=== PATIENT | male | born 1995 | race Caucasian/White ===

== ENCOUNTER 2018-05-19 07:19 | Emergency (ER) | payer SELFPAY ==
[~2018-05-19] VITALS: Wt 95.8 kg
[2018-05-19 07:22] VITALS: BP 168/100; PULSE 116; RESP 18
[2018-05-19] MEDS ORDERED: LIDOCAINE 1% (MPF) 5 ML VIAL INFIL ONE (08:00)
[2018-05-19] MEDS ORDERED: IBUP-1561 PO (08:43)
[2018-05-19] MEDS ORDERED: MUPI22OI2 TOP (08:43)
[2018-05-19] MEDS ORDERED: CEPH500C PO (08:43)
--- NOTE | 2018-05-19 08:50 | ERD ---
ER Documentation Chief Complaint Chief Complaint POSSIBLE SPIDER BITE TO LEFT FOREARM HPI 22-year-old male presents for left arm bump times 2 days. He states that he may have been bit by a spider. He states that the redness in the arm is been getting a little bit worse. There is some pus drainage from the arm. He denies any fevers or chills. Denies any chest pain or shortness of breath. ROS All systems reviewed and are negative except as per history of present illness. Medications Home Meds Active Scripts Mupirocin* (Bactroban*) 2% -22 Gram Oint...g., 1 APPLIC TOP BID for skin infection for 7 Days, EA Prov:HALIE SPANGLER DO 05/19/18 Ibuprofen* (Motrin*) 400 Mg Tab, 400 MG PO Q6H PRN for PAIN AND OR ELEVATED TEMP, #30 TAB Prov:HALIE SPANGLER DO 05/19/18 Cephalexin* (Cephalexin*) 500 Mg Capsule, 500 MG PO Q8 for skin infection for 7 Days, #21 CAP Prov:HALIE SPANGLER DO 05/19/18 PMhx/Soc Medical and Surgical Hx: pt denies Medical Hx, pt denies Surgical Hx Hx Alcohol Use: Yes Hx Substance Use: Yes (MARIJUANA) Hx Tobacco Use: No Smoking Status: Current some day smoker Physical Exam Vitals Vital Signs Date Temp Pulse Resp B/P (MAP) Pulse Ox O2 O2 Flow FiO2 Time Delivery Rate 05/19/18 97.8 116 18 168/100 99 07:22 (122) Physical Exam Const: No acute distress Resp: Clear to auscultation bilaterally Cardio: Regular rate and rhythm, no murmurs, bilateral radial pulses intact Skin: Left arm 2 cm lesion, raised, erythematous with mild warmth, mildly fluctuant Ext: No cyanosis, or edema Neur: Awake and alert, bilateral upper extremity sensation intact Psych: Normal Mood and Affect Results 24 hrs Current Medications Medications Dose Sig/Bj Start Time Status Last (Trade) Ordered Route PRN Stop Time Admin Dose Reason Admin Lidocaine 5 ml ONCE ONCE 05/19/18 DC (Xylocaine INFIL 08:00 1% (Mpf)) 05/19/18 08:01 Procedures/MDM Abscess Incision and Drainage with irrigation by me: Location: Right forearm Anesthesia: [Local 1% Lidocaine without epinephrine] Technique: [Irrigated. Disrupted loculations w/ instrumentation] Packing: [None] Complications: [Neurovascularly intact post procedure] 48 hour wound check. Scar minimization instructions given. Patient's skin symptoms have stabilized while they have been evaluated in the department and are appropriate for outpatient care and work up. Exam and w/u not consistent w/ sepsis, deep space infection, or foreign body. Medical Decision Making: Differential diagnosis includes but not limited to abscess, cellulitis, contact dermatitis. Patient appear well on examination. There is a 2 cm raised erythematous lesion noted consistent with an abscess. Incision and drainage was done in the ER, see procedure note above. Patient given prescription for Keflex, Motrin, Bactroban. Patient instructed regarding wound care. Patient advised to return to the ER in 48 hours for a wound check. Patient advised to follow up with PCP in 1-2 days. Patient advised to return to ED for new or worsening symptoms. Patient stable on discharge from the ED. Disclaimer: Inadvertent spelling and grammatical errors are likely due to EHR/dictation software use and do not reflect on the overall quality of patient care. Also, please note that the electronic time recorded on this note does not necessarily reflect the actual time of the patient encounter. Departure Diagnosis: Primary Impression: Abscess Condition: Fair Patient Instructions: Abscess, Incision And Drainage Additional Instructions: Call your primary care doctor TOMORROW for an appointment during the next 1-2 days.See the doctor sooner or return here if your condition worsens before your appointment time. Follow in in ED in 2 days. HALIE SPANGLER DO May 19, 2018 08:50
[2018-05-21] MEDS ORDERED: CEPH-443 PO (18:05)
[2018-05-21] MEDS ORDERED: SULF1TAB31 PO (18:05)
== END 2018-05-19 08:46 | disposition home or self-care (01) ==
LOC: FTE 07:19
DX: L02.414 Cutaneous abscess of left upper limb (principal); F17.210 Nicotine dependence, cigarettes, uncomplicated

== ENCOUNTER 2018-09-07 22:13 | Emergency (ER) | payer SELFPAY ==
[~2018-09-07] VITALS: Ht 175.3 cm; Wt 96.2 kg
[~2018-09-07 22:13] MED LIST: CEPH-443 PO; CEPH500C PO; IBUP-1561 PO; MUPI22OI2 TOP; SULF1TAB31 PO
[2018-09-07 22:19] VITALS: BP 163/78; PULSE 99; RESP 18; Ht 175.3 cm; Wt 96.2 kg
[2018-09-08] MEDS ORDERED: LIDOCAINE 1% (MDV) 10 ML INJ INJ STA (00:16)
[2018-09-08] MEDS ORDERED: LIDOCAINE 1% (MDV) 20 ML INJ INJ STA (00:21)
[2018-09-08] MEDS ORDERED: CLIN300C10 PO (01:13)
[2018-09-08] MEDS ORDERED: HYDR-4011 PO (01:13)
--- NOTE | 2018-09-08 01:16 | ERD ---
ER Documentation Chief Complaint Chief Complaint STATES LT FOREARM AND PELVIC ABSCESS X1.5 WEEKS HPI This is a 22-year-old male who presents with area of redness and swelling to his left mid inner forearm for about a week and a half. He also has 2 small abscesses to his pelvic region. This been some bleeding and drainage from them. No fever. ROS All systems reviewed and are negative except as per history of present illness. Medications Home Meds Active Scripts Hydrocodone/Acetaminophen ([facility] 5-325 Tablet) 1 Each Tablet, 1 EACH PO Q6, #15 TAB Prov:KENYATTA CERDA PA-C 09/08/18 Clindamycin Hcl* (Clindamycin Hcl*) 300 Mg Capsule, 300 MG PO TID for 10 Days, CAP Prov:KENYATTA CERDA PA-C 09/08/18 Cephalexin* (Keflex*) 500 Mg Capsule, 500 MG PO QID for 7 Days, CAP Prov:ANNABELLA CROCKER PA-C 05/21/18 Sulfamethoxazole/Trimethoprim* (Bactrim Ds* Tablet) 1 Each Tablet, 1 TAB PO BID, #14 TAB Prov:ANNABELLA CROCKER PA-C 05/21/18 Mupirocin* (Bactroban*) 2% -22 Gram Oint...g., 1 APPLIC TOP BID for skin infection for 7 Days, EA Prov:HALIE SPANGLER DO 05/19/18 Ibuprofen* (Motrin*) 400 Mg Tab, 400 MG PO Q6H PRN for PAIN AND OR ELEVATED TEMP, #30 TAB Prov:HALIE SPANGLER DO 05/19/18 Cephalexin* (Cephalexin*) 500 Mg Capsule, 500 MG PO Q8 for skin infection for 7 Days, #21 CAP Prov:HALIE SPANGLER DO 05/19/18 Allergies Allergies: Coded Allergies: No Known Allergy (Unverified , 05/21/18) PMhx/Soc History of Surgery: No Anesthesia Reaction: No Hx Neurological Disorder: No Hx Respiratory Disorders: No Hx Cardiac Disorders: No Hx Psychiatric Problems: No Hx Miscellaneous Medical Probl: No Hx Alcohol Use: Yes Hx Substance Use: Yes (MARIJUANA) Hx Tobacco Use: No FmHx Family History: No diabetes Physical Exam Vitals Vital Signs Date Temp Pulse Resp B/P (MAP) Pulse Ox O2 O2 Flow FiO2 Time Delivery Rate 09/07/18 97.6 99 18 163/78 99 22:19 (106) Physical Exam Const: No acute distress Head: Atraumatic Eyes: Normal Conjunctiva ENT: Normal External Ears, Nose and Mouth. Neck: Full range of motion. No meningismus. Resp: Clear to auscultation bilaterally Cardio: Regular rate and rhythm, no murmurs Skin: Left forearm abscess approximately 1-1/2 cm in diameter, 2 small pelvic abscesses just above penis, each is about 1 cm in diameter Results 24 hrs Current Medications Medications Dose Sig/Bj Start Time Status Last (Trade) Ordered Route PRN Stop Time Admin Dose Reason Admin Lidocaine 10 ml ONCE STAT 09/08/18 Cancel HCl INJ 00:16 09/08/18 (Lidocaine 00:17 1% (Mdv) 10 ml) Lidocaine 10 ml ONCE STAT 09/08/18 DC (Xylocaine INJ 00:21 09/08/18 1% (Mdv) 20 00:22 ml) Procedures/MDM 22-year-old male has multiple abscesses. The ones in his pelvic region are likely secondary to ingrown hairs. The abscess was infiltrated with 1% Lidocaine for local anesthesia. A scalpel was then used to incise the central, fluctuant area of the abscess. There was immediate pus drainage from the wound. There were no complications and pt tolerated the procedure well. The would was appropriately dressed and bandaged. Pt was given prescription for Keflex ibuprofen and [facility].. I recommended that pt return in 2 days for a wound check. Patient counseled regarding my diagnostic impression and care plan. Prior to discharge all questions answered. Pt agrees with treatment plan and understands strict return precautions. Pt is instructed to follow up with primary care provider within 24-48 hours. Precautionary instructions provided including instructions to return to the ER if not improving or for any worsening or changing symptoms or concerns. Departure Diagnosis: Primary Impression: Abscess Condition: Stable Patient Instructions: Abscess, Incision And Drainage Additional Instructions: Call your primary care doctor TOMORROW for an appointment during the next 1-2 days.See the doctor sooner or return here if your condition worsens before your appointment time. KENYATTA CERDA PA-C September 08, 2018 01:16
== END 2018-09-08 01:28 | disposition home or self-care (01) ==
LOC: FTE 22:13
DX: L02.414 Cutaneous abscess of left upper limb (principal); K65.1 Peritoneal abscess

== ENCOUNTER 2019-01-06 10:25 | Emergency (ER) | payer SELFPAY ==
[~2019-01-06] VITALS: Ht 175.3 cm; Wt 82.6 kg
[~2019-01-06 10:25] MED LIST changes: +CLIN300C10 PO; +HYDR-4011 PO
[2019-01-06 10:28] VITALS: Ht 175.3 cm; Wt 82.6 kg
[2019-01-06] MEDS ORDERED: LIDOCAINE 1% (MPF) 5 ML VIAL INFIL ONE (11:00)
[2019-01-06] MEDS ORDERED: SOD CHLORIDE 0.9% 1,000 ML IV STA (11:01)
[2019-01-06] MEDS ORDERED: ONDANSETRON 4 MG INJ IV STA (11:01)
[2019-01-06] MEDS ORDERED: morphine 4 MG/ML VIAL IV STA (11:01)
[2019-01-06] MEDS ORDERED: CLINDAMYCIN 900 MG (PMX) 50 ML IVPB SCH (11:30)
[2019-01-06 12:39] VITALS: BP 150/82; PULSE 89; RESP 16
== END 2019-01-06 12:40 | disposition home or self-care (01) ==
LOC: FTE 10:25
DX: L02.512 Cutaneous abscess of left hand (principal)
CPT/HCPCS: 10060; 96365; 96375; 99284; J2270; J2405; J7030

== ENCOUNTER 2019-01-07 12:33 | Emergency (ER) | payer SELFPAY ==
[~2019-01-07] VITALS: Wt 80.0 kg
[2019-01-07] MEDS ORDERED: DEXAMETHASONE 10 MG/ML 1 ML INJ IV ONE (15:00)
[2019-01-07] MEDS ORDERED: CEFTRIAXONE 1 GM/50 ML (PMX) 50 ML IVPB ONE (15:00)
[2019-01-07] MEDS ORDERED: LIDOCAINE 4% CR TOP ONE (15:00)
[2019-01-07 16:54] VITALS: BP 158/90; PULSE 95; RESP 19
== END 2019-01-07 16:55 | disposition home or self-care (01) ==
LOC: FTE 12:33
DX: L02.512 Cutaneous abscess of left hand (principal); F17.210 Nicotine dependence, cigarettes, uncomplicated
CPT/HCPCS: 26010; 96365; 96375; 99284; J0696; J1100

== ENCOUNTER 2019-01-09 13:52 | Emergency (ER) | payer SELFPAY ==
[~2019-01-09] VITALS: Ht 175.3 cm; Wt 86.4 kg
[2019-01-09 14:00] VITALS: BP 142/92; PULSE 104; RESP 20; Ht 175.3 cm; Wt 86.4 kg
== END 2019-01-09 14:56 | disposition home or self-care (01) ==
LOC: E/R 13:52
DX: Z48.00 Encounter for change or removal of nonsurgical wound dressing (principal)
CPT/HCPCS: 99281